=== PATIENT | female | born 2000 | race Two or more races ===

== ENCOUNTER 2022-07-24 02:28 | Inpatient (IN) | payer MEDICAID ==
[~2022-07-24] VITALS: Ht 154.9 cm; Wt 77.1 kg
[2022-07-24] MEDS ORDERED: DERMOPLAST 60ML BOTTLE TOP PRN (03:00)
[2022-07-24] MEDS ORDERED: PENICILLIN G POT 5MIL/D5 50ML 50 ML IV ONE (03:00)
[2022-07-24] MEDS ORDERED: BUTORPHANOL TARTRATE 2 MG/1 ML VIAL IV PRN ×2 (03:00)
[2022-07-24] MEDS ORDERED: PHISODERM TOP SOLN 240ML BTL TOP PRN (03:00)
[2022-07-24] MEDS ORDERED: WITCH HAZEL-GLYCERIN PAD TOP PRN (03:00)
[2022-07-24] MEDS ORDERED: PROMETHAZINE HCL 25 MG/ML 1ML IV PRN (03:00)
[2022-07-24] MEDS ORDERED: LACTATED RINGER'S 1,000 ML IV SCH (03:00)
[2022-07-24] MEDS ORDERED: LIDOCAINE 2%HCL (LOCAL ANESTH.) INJ 10ml MDV IJ PRN (03:00)
[2022-07-24] MEDS ORDERED: FERR-7 PO (03:14)
[2022-07-24] MEDS ORDERED: PREN-96 PO (03:14)
[2022-07-24] MEDS ORDERED: LACTATED RINGER'S 1,000 ML IV ONE (03:15)
[2022-07-24 04:01] LABS: Eosinophils # (auto) 0 10 ^3/uL (0-0.8); Hematocrit 31.9 % (36.0-46.0); Monocytes # (auto) 0.5 10 ^3/uL (0-1.3); Neutrophils # (auto) 11.3 10 ^3/uL (1.6-8.6)
[2022-07-24 04:03] LABS: Basophils # (auto) 0 10 ^3/uL (0-0.2); Basophils % (auto) 0.3 % (0.0-2.0); Eosinophils % (auto) 0.1 % (0.0-7.0); Hemoglobin 11.4 g/dL (12.2-16.2); Lymphocytes # (auto) 0.9 10 ^3/uL (0.4-5.4); Lymphocytes % (auto) 7.3 % (10.0-50.0); Mean Corpuscular Hemoglobin 35.1 pg (28.0-32.0); Mean Corpuscular Hgb Conc. 35.6 g/dL (32.0-36.0); Mean Corpuscular Volume 98.3 fL (80.0-100.0); Monocytes % (auto) 3.8 % (0.0-12.0); Neutrophils % (auto) 88.5 % (37.0-80.0); Red Blood Cells 3.24 10^6/uL (4.0-5.20); Red Cell Distribution Width 13.5 % (11.8-14.3); White Blood Cell 12.8 10^3/uL (4.4-10.8)
[2022-07-24 04:10] LABS: Albumin 2.9 g/dL (3.4-5.0); BUN/Creatinine Ratio 4.7; Calcium 8.5 mg/dL (8.5-10.1); Potassium 3.3 mmol/L (3.5-5.1)
[2022-07-24 04:13] LABS: Bilirubin, Total 0.7 mg/dL (0.2-1.0)
[2022-07-24 04:20] LABS: INR 0.97 (0.9-1.15); Partial Thromboplastin Time 30.5 sec (24.6-33.4)
[2022-07-24] MEDS ORDERED: LACT. RINGERS/OXYTOCIN 20UNITS 500 ML IV ONE ×2 (04:45→05:15)
[2022-07-24] MEDS ORDERED: LIDOCAINE 2%HCL (LOCAL ANESTH.) INJ 20ML MDV ONE (05:23)
[2022-07-24] MEDS ORDERED: PENICILLIN G POTASSIUM 2,500,000 UNITS in D5W 5% 50 ML IV SCH (07:00)
[2022-07-24 08:01] LABS: Urine Bacteria NONE SEEN /hpf (None Seen); Urine Blood 3+ /uL (Negative); Urine Specific Gravity 1.015 (1.001-1.035); Urine WBC 525 /hpf (0 - 5); Urine WBC Clumps PRESENT /hpf (None Seen)
[2022-07-24 08:11] LABS: Alcohol, Urine < 3.0 mg/dL (0-10); Amphetamine Screen, Urine NEGATIVE (NEGATIVE); Barbiturate Scree,Urine NEGATIVE (NEGATIVE); Benzodiazephine Screen, Urine NEGATIVE (NEGATIVE); Cannabinoid Screen, Urine POSITIVE (NEGATIVE); Cocaine Screen, Urine NEGATIVE (NEGATIVE); Opiate Scree,Urine NEGATIVE (NEGATIVE); Phencyclidine Screen, Urine NEGATIVE (NEGATIVE)
[2022-07-24] MEDS ORDERED: IBUPROFEN 600 MG TAB PO PRN (08:30)
[2022-07-24 11:00] VITALS: BP 142/62
[2022-07-24 15:00] VITALS: BP 130/56
[2022-07-24] MEDS: ACETAMINOPHEN 325 MG TAB PO PRN ×2 (18:01→23:33)
[2022-07-24 18:45] VITALS: BP 128/68
[2022-07-24 23:00] VITALS: BP 102/59
[2022-07-25 03:00] VITALS: BP 117/75
[2022-07-25] MEDS: ACETAMINOPHEN 325 MG TAB PO PRN ×2 (03:55→19:11)
[2022-07-25 07:00] VITALS: BP 107/73
[2022-07-25 07:06] LABS: Rubella Antibodies, IgG 3.78 index (Immune >0.99)
[2022-07-25 08:06] LABS: RPR Non Reactive (Non Reactive)
[2022-07-25 11:00] VITALS: BP 110/68
[2022-07-25 15:00] VITALS: BP 113/66
[2022-07-25 19:30] VITALS: BP 116/75
[2022-07-25] MEDS ORDERED: TETANUS-DIPTH-ACEL PERTUSSIS 0.5ML SYR Tdap IM ONE (22:45)
[2022-07-25 23:00] VITALS: BP 125/74
== END 2022-07-25 23:45 | disposition home or self-care (01) | DRG 560 ==
LOC: LDRP 02:28 → OBSVTOIN 02:28 → LDRP 06:03
PROVIDERS: ADMIT Obstetrics & Gynecology; ATTEND Obstetrics & Gynecology
PROC: 10E0XZZ Delivery of Products of Conception, External Approach (ICD-10-PCS; principal; 2022-07-24)
PROC: 0HQ9XZZ Repair Perineum Skin, External Approach (ICD-10-PCS; 2022-07-24)
DX: O70.9 Perineal laceration during delivery, unspecified (principal); Z37.0 Single live birth; O71.82 Other specified trauma to perineum and vulva; Z20.822 Contact with and (suspected) exposure to COVID-19; Z3A.37 37 weeks gestation of pregnancy
CPT/HCPCS: 36415; 59025; 59409; 80053; 80307; 81001; 81002; 85025; 85610; 85730; 86592; 86703; 86762; 86850; 86900; 86901; 87340; 90715; 94760; 96360; 96361; 96365; 96366; 96372; G0378; J2540; J2590; J7060